=== PATIENT | female | born 1935 | race Caucasian/White ===

== ENCOUNTER 2018-12-15 10:50 | Day surgery (SDC) | payer MEDICARE ==
[~2018-12-15 10:50] MED LIST: CEFAZOLIN 1G VIAL IVP ONE; CEFAZOLIN 2 Gram 2 GM/50 ML BAG IVPB ONE; CELECOXIB 100 MG CAPSULE PO ONE; FAMOTIDINE 20MG TABLET PO ONE; MECLIZINE 25 MG TABLET PO ONE; METOCLOPRAMIDE 10 MG TABLET PO ONE; VANCOMYCIN HCL 1 MG in DEXTROSE 5 % IN WATER 250 ML IVPB ONE; WATER STERILE FOR INJECTION 20 ML VIAL MC ONE
[2018-12-15] MEDS ORDERED: CEFAZOLIN 2 Gram 2 GM/50 ML BAG IVPB ONE (10:51)
[2018-12-15] MEDS ORDERED: TRANEXAMIC ACID 1,000 MG/10 ML ML IV ONE (10:51)
[2018-12-15] MEDS ORDERED: 0.9 % SODIUM CHLORIDE 10 ML VIAL IVP ONE (10:51)
[2018-12-15] MEDS ORDERED: DEXAMETHASONE 4 MG/ML 1ML VIAL IVP ONE (10:51)
[2018-12-15] MEDS ORDERED: PROPOFOL 10 MG/ML VIAL IV ONE (10:51)
[2018-12-15] MEDS ORDERED: KETAMINE HCL 100MG/1ML VIAL INJ ONE (10:51)
[2018-12-15] MEDS ORDERED: ROPIVACAINE HCL (NAROPIN) /PF 5MG/ML 20ML VIAL IV ONE (10:51)
[2018-12-15] MEDS ORDERED: MIDAZOLAM HCL 2MG/2ML VIAL IV ONE (10:51)
[2018-12-15 11:26] LABS: ABO GROUP A; RH TYPE NEGATIVE
[2018-12-15] MEDS ORDERED: RINGERS SOLUTION,LACTATED 1,000 ML IV ONE ×3 (11:47→15:40)
[2018-12-15] MEDS ORDERED: BUPIVACAINE 0.5% W/EPI MPF 30 ML VIAL SQ ONE (14:14)
[2018-12-15 14:42] LABS: ANTIBODY SCREEN POSITIVE (NEGATIVE)
[2018-12-15] MEDS ORDERED: ONDANSETRON HCL IV 4 MG/2 ML VIAL IVP PRN (15:26)
[2018-12-15] MEDS ORDERED: ACETAMINOPHEN 325 MG TAB PO PRN (15:26)
[2018-12-15] MEDS ORDERED: DIPHENHYDRAMINE HCL 25 MG CAPSULE PO PRN (15:26)
[2018-12-15] MEDS ORDERED: AL HYDROX/MAG HYDROX 30ML UD PO PRN (15:26)
[2018-12-15] MEDS ORDERED: ZOLPIDEM TARTRATE 5 MG TABLET PO PRN (15:26)
[2018-12-15] MEDS ORDERED: KETOROLAC 30 MG/ML VIAL IVP PRN ×2 (15:26)
[2018-12-15] MEDS ORDERED: MAGNESIUM HYDROXIDE 30 ML UDC PO PRN (15:26)
[2018-12-15] MEDS ORDERED: NALOXONE 0.4 MG/1 ML VIAL IVP PRN (15:26)
[2018-12-15] MEDS ORDERED: TRAMADOL HCL 50 MG TABLET PO PRN ×2 (15:26)
[2018-12-15] MEDS ORDERED: BISACODYL 10 MG SUPP RC PRN (15:26)
[2018-12-15] MEDS ORDERED: MEPERIDINE 50 MG/1 ML VIAL IV PRN (15:28)
[2018-12-15] MEDS ORDERED: MEPERIDINE 50 MG/1 ML VIAL PO PRN (15:56)
[2018-12-15] MEDS: POTASSIUM CHLORIDE/D5-0.9%NACL 20 MEQ/1,000 ML BAG IV SCH (21:15)
[2018-12-15] MEDS: CEFAZOLIN 2 Gram 2 GM/50 ML BAG IVPB SCH (21:15)
[2018-12-15] MEDS: DOCUSATE SODIUM 100 MG CAPSULE PO SCH (21:15)
[2018-12-16] MEDS: POTASSIUM CHLORIDE/D5-0.9%NACL 20 MEQ/1,000 ML BAG IV SCH ×2 (03:02→09:06)
[2018-12-16] MEDS: CEFAZOLIN 2 Gram 2 GM/50 ML BAG IVPB SCH ×2 (04:08→11:59)
[2018-12-16 06:57] LABS: HEMATOCRIT 32.6 % (35.0-47.0); HEMOGLOBIN 10.2 gm/dl (11.6-16.0)
[2018-12-16] MEDS ORDERED: LEVOTHYROXINE SODIUM 88 MCG TABLET PO SCH (07:00)
[2018-12-16] MEDS ORDERED: RIVAROXABAN 10 MG TABLET PO SCH (10:00)
[2018-12-16] MEDS ORDERED: CHOLECALCIFEROL 1,000 UNIT TABLET PO SCH (10:00)
[2018-12-16] MEDS ORDERED: BENAZEPRIL 20 MG TABLET PO SCH (10:00)
[2018-12-16] MEDS ORDERED: AMLODIPINE BESYLATE 5MG TAB PO SCH (10:00)
[2018-12-16] MEDS ORDERED: FERROUS SULFATE 325 MG TAB PO SCH (10:00)
[2018-12-16] MEDS ORDERED: ESCITALOPRAM 10 MG TABLET PO SCH (10:00)
[2018-12-16] MEDS ORDERED: MULTIVITAMINS/MINERALS TABLET PO SCH (10:00)
--- NOTE | 2018-12-16 10:36 | Rehab Evaluation ---
Patient Information - Patient Information Diagnosis: DJD L Knee Ordered Treatment: PT Evaluate and Treat Status: Initial Evaluation Surgery: Yes (L TKA) Date of Surgery: 12/15/18 Past Medical/Surgical Hx: PAST MEDICAL/SURGICAL HISTORY Past Surgical History CERVICAL CAGE RTKA 2010 KIDNEY STONE REMOVAL HYST BILAT BREAST BX'S BENIGN C SCOPES PMH - Respiratory Hx Respiratory Disorders Yes Hx Bronchitis Yes: IN PAST Hx Pneumonia Yes: IN PAST Hx of URI Yes: GETTING OVER A COLD Hx of Productive Cough Yes: PROD WHITE SPUTUM PMH - Cardiovascular Hx Cardiovascular Disorders Yes Hx Hypertension Yes: CONTROLLED ON MEDS Exercise Tolerance Good PMH - Neuro Hx Neurological Disorders Yes Hx Neuropathy Yes: LE'S PMH - GI Hx Gastrointestinal Disorders Yes Hx Gastroesophageal Reflux Yes: AT TIMES Hx Irritable Bowel Yes: ON PROBIOTICS PMH - Hx Genitourinary Disorders Yes Hx Kidney Stones Yes: HX OF Hx Renal Disease Yes: KIDNEY IS TIPPED PMH - Endocrine Hx Endocrine Disorders Yes Hx Thyroid Disease Yes: ON MEDS PMH - Musculoskeletal Hx Musculoskeletal Disorders Yes Hx Arthritis Yes: LEFT KNEE PMH - Psych Hx Psychiatric Problems Yes Hx Anxiety Yes: ON MEDS Hx Depression Yes: LOST AND SISTER LAST YEAR DAUGHTER WITH BRAIN CA PMH - Hematology/Oncology Hx Hematology/Oncology Yes Disorders 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 Patient reports that she has a ramp entering the home with one railing on the right. Patient does report that she has 2 stairs entering her living room with one railing on the side. Patient's primary bathroom has a walk in shower with grab bars, but no hand-held shower available. Patient also reports that she has a shower bench and toilet riser available for the bathroom. Toilet in the bathroom is standard height and does not have grab bars available. Patient reports that she has a rollator available to use at home. Patient expects to discharge from hospital in a car with home PT scheduled.) - Time With Patient Total Time Spent With Patient (Min): 20 Treatment Procedures: Detail (Initial evaluation, low complexity) Subjective Information - Subjective Information Per Patient (Patient reports no pain, but does report that sensation in dorsal aspect of left foot was still numb. Patient reported that more feeling was starting to come back with ambulation.) Objective Data - Mental Status Patient Orientation: Oriented x3 - ROM Not within normal limits (Patient's left lower extremity range of motion was limited due to s/p surgery, as expected. All other range of motion was within functional limits and was assessed functionally with sit to stand transfer, amb ulation, and stair assessment.) - Strength/Tone Not within normal limits (Patient's left lower extremity was not assessed with formal manual muscle test due to patient being s/p surgery. Patient was unable to actively contract left ankle dorsiflexion or left toe flexion and extension, which is likely due to the effects of the block due to surgery. Patient's right lower extremity strength was assessed functionally with sit to stand transfer, ambulation, and stairs and were determined to be within functional limits.) - Transfers Independent (Patient completed sit to stand transfer from L EOB, with supervision x1 for safety and 2-wheeled walker for support. Patient demonstrated proper hand placement and did not require cueing for safety.) - Sensation Deficit (Patient's left lower extremity on dorsal aspect of foot was reported to be numb, but is likely due to anesthesia from surgery. Patient reported with ambulation that sensation began to return.) - Gait Detail (Patient ambulated total of 113 feet with 2-wheeled walker with initially CGAx1 assistance for safety and progressed to supervision x1 assistance. Patient demonstrated decreased left heel strike and dorsiflexion, but this is likely due to patient reporting that left extremity had decreased sensation. Patient also was assessed on stair mobility and ascended and descended 3 steps with railing on the right with CGAx1 for safety.) Therapy Assessment - Therapy Assessment Detail (Patient did well throughout therapy session, but was unable to actively contract left ankle dorsiflexion and toe flexion and extension. However, this is likely due to the effects of the block used during surgery and patient reported returning sensation during ambulation. Sit to stand transfer was assessed using 2-wheeled walker for support and supervision x1. Patient demonstrated safety compliance and did not require any verbal cueing. Patient ambulated total of 113 feet with 2-wheeled walker and CGA-SBAx1 for safety but did not require any verbal cueing for safety. Patient demonstrated decreased dorsiflexion and heel strike in left extremity but is likely due to patient reporting decreased sensation. Patient ascended and descended 3 steps with one railing support on the right with CGAx1 for safety. Overall, patient did not show any concerns with safety.) Problem List - Problem List Physical Therapy Problem List: Detail (1. Decreased patient ROM in left lower extremity due to s/p surgery 2. Decreased strength in left lower extremity due to s/p surgery. 3. Altered gait pattern due to compensations over time due to pain.) Goals - Goals Physical Therapy Goals: All inpatient goals have been met. Prognosis - Prognosis Good (Patient did well throughout treatment session and demonstrated ability with progressing to independence with transfers, ambulation, and home exercises. With continued focus on her home exercises she is expected to return to prior level of function.) Plan - Plan Physical Therapy Plan: Patient is discharged from inpatient rehab PT and is recommended to continue with home PT at this time to focus on further strengthening, transfers, and gait training.
[2018-12-16] MEDS: DOCUSATE SODIUM 100 MG CAPSULE PO SCH (11:29)
--- NOTE | 2018-12-16 11:50 | Rehab Evaluation ---
Patient Information - Patient Information Diagnosis: DJD L Knee Ordered Treatment: OT Evaluate and Treat Status: Initial Evaluation Surgery: Yes (L TKA) Date of Surgery: 12/15/18 Past Medical/Surgical Hx: PAST MEDICAL/SURGICAL HISTORY Past Surgical History CERVICAL CAGE RTKA 2010 KIDNEY STONE REMOVAL HYST BILAT BREAST BX'S BENIGN C SCOPES PMH - Respiratory Hx Respiratory Disorders Yes Hx Bronchitis Yes: IN PAST Hx Pneumonia Yes: IN PAST Hx of URI Yes: GETTING OVER A COLD Hx of Productive Cough Yes: PROD WHITE SPUTUM PMH - Cardiovascular Hx Cardiovascular Disorders Yes Hx Hypertension Yes: CONTROLLED ON MEDS Exercise Tolerance Good PMH - Neuro Hx Neurological Disorders Yes Hx Neuropathy Yes: LE'S PMH - GI Hx Gastrointestinal Disorders Yes Hx Gastroesophageal Reflux Yes: AT TIMES Hx Irritable Bowel Yes: ON PROBIOTICS PMH - Hx Genitourinary Disorders Yes Hx Kidney Stones Yes: HX OF Hx Renal Disease Yes: KIDNEY IS TIPPED PMH - Endocrine Hx Endocrine Disorders Yes Hx Thyroid Disease Yes: ON MEDS PMH - Musculoskeletal Hx Musculoskeletal Disorders Yes Hx Arthritis Yes: LEFT KNEE PMH - Psych Hx Psychiatric Problems Yes Hx Anxiety Yes: ON MEDS Hx Depression Yes: LOST AND SISTER LAST YEAR DAUGHTER WITH BRAIN CA PMH - Hematology/Oncology Hx Hematology/Oncology Yes Disorders 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 Prior to admit, she was indep. with all ADLs and driving.) Social History: Detail (Pt lives in 1 story home with her daughter and son-in-law that can assist with meals and transportation. Patient reports that she has a ramped entrance with one railing on the right. Patient does report that she has 2 stairs entering her living room with one railing on the side. Patient's primary bathroom has a walk in shower with grab bars, a shower bench, and a hand-held shower. Patient also reports that she has a toilet riser available for the bathroom. Pt has a FWW and 4WW. Patient expects to discharge from hospital in a car with home PT scheduled.) Precautions: [place], Fall, Other (FWB) - Time With Patient Total Time Spent With Patient (Min): 25 (1 Eval) Treatment Procedures: Detail (OT eval: low complexity) Subjective Information - Subjective Information Per Patient (Ok to see per RN Jennifer. Pt agreeable to OT eval.) Objective Data - Pain Pain Present: No - Mental Status Patient Orientation: Oriented x3 - Visual Perception Appears within normal limits for therapeutic activities - ROM Within normal limits ( B UEs WNL) - Strength/Tone Within normal limits - Coordination Appears within normal limits for therapeutic activities - Bed Mobility Independent (supine >< EOB) - Transfers Independent (sit >< stand from low surfaces to FWW) - Balance Balance Sitting: Good Balance Standing: Good, Fair - Sensation Intact - Gait Detail (Fxl amb. within bedroom with FWW) - ADL's/IADL's Detail (OT educ. Pt on mod. tech for LB dressing, Pt demos MOD I to don/doff underwear, pants, and socks, demos fxl ability to don shoes but declines d/t izzy wrap still on LLE. OT educ. Pt on mod techs. for safety at home - kitchen, laundry, bathroom. Pt reports spouse able to assist at DC as needed.) Therapy Assessment - Therapy Assessment Detail (Pt MOD I with all ADLs and fxl mobility, good safety awareness.) Patient Education - Patient Education Teaching Topic: Exercise/Activity, Other (ADL training) Response: Return Demonstration, Verbalize Understanding Teaching Method: Discussion, Demonstration Teaching Recipient: Patient Barriers To Learning: None Problem List - Problem List Physical Therapy Problem List: Detail (1. Decreased patient ROM in left lower extremity due to s/p surgery 2. Decreased strength in left lower extremity due to s/p surgery. 3. Altered gait pattern due to compensations over time due to pain.) Occupational Therapy Problem List: Detail (No further OT needs identified.) Goals - Goals Physical Therapy Goals: All inpatient goals have been met. Occupational Therapy Goals: No further OT needs/goals identified. Prognosis - Prognosis Good Plan - Plan Occupational Therapy Plan: No further IP OT needs/goals identified. DC IP OT. Thank you for this referral.
--- NOTE | 2018-12-17 08:50 | Operative Note ---
DATE OF SURGERY: 12/15/2018 PREOPERATIVE DIAGNOSIS: End-stage arthrosis of the left knee. POSTOPERATIVE DIAGNOSIS: End-stage arthrosis of the left knee. OPERATION: Cemented left total knee arthroplasty using Wheatley and Nephew Rupinder II components with a size 4 cobalt chrome femur, a size 4 stem tibia baseplate, a 9 mm lipped tibial insert, and a 32 mm all plastic patella. STAFF SURGEON: Demond Miranda MD ANESTHESIA: Spinal. PREPARATION: Chloraprep. INDIVIDUAL CONSIDERATIONS: None. PROCEDURE: The patient was taken to the operating room, placed supine on the operating room table. She had a successful induction of a spinal anesthetic. The left lower extremity was prepped and draped in the usual fashion. The limb was elevated and tourniquet was inflated to 250 mmHg. The patient had a midline approach to the knee. Sharp dissection carried down through skin and subcutaneous tissue. Small veins were coagulated with a Bovie. A medial arthrotomy was performed. The patella was everted and the knee was flexed. The patient had basically exposed bone throughout, actually in all 3 compartments. Fat pad was resected, ACL was sacrificed, and provisional anterior meniscectomies were performed. The capsule was released from the medial proximal tibia. The initial femoral marine pilot hole was then made freehand. The intramedullary femoral cutting jig was placed. It was cut in 7.0 degrees of valgus and adjusted for rotation and secured with pins for a 10 mm resection. The initial transverse cut was then made. The skin guide was placed in the anterior and posterior marine pilot holes. It was found that a size 4 would be appropriate. The anterior and posterior cuts followed by chamfer cuts were made. Osteophytes removed, and a size 4 trial was placed and found to fit well. The tibia was brought forward, and the remainder of the meniscal remnants removed with a Bovie. The extraarticular tibial cutting jig was placed. It was cut in neutral with a 3-degree AP slope. Care was taken to adjust for rotation and flexion using the extraarticular alignment guide and bony landmarks. It was set for a 9 mm resection keyed off the high lateral side and secured with pins. When cutting the tibia, care was taken to preserve the PCL insertion on the tibia. After removing osteophytes, and I could fit a size 4. It was adjusted for rotation and secured with pins. With a 9 mm trial and femoral trial, there was excellent motion and stability, ligamentous balance, rotation alignment were thought be normal. Femoral marine pilot holes were impacted. Tri-flange tibial stamp was impacted, and these trial components were removed. The patient had a relatively thick patella, and roughly 9 mm of bone was removed freehand with an oscillating saw. I was easily able to fit a 32 patella. The 3 marine pilot holes were drilled. The tourniquet was let down briefly to get bleeders posteriorly and then placed back up again. The knee was then thoroughly irrigated out with pulsatile Betadine and saline to remove any visual or palpable debris. Bony surfaces were then dried. A size 4 stem tibia baseplate was cemented into place followed by impaction of the 9 mm lipped tibial insert followed by cementing in the size 4 cobalt chrome femur followed by cementing in the 32 mm all plastic patella. The implant surfaces were compressed, excess cement was removed. After the cement had set, there was excellent motion and stability, ligamentous balance, rotation alignment, and patellofemoral tracking were normal. No lateral release was required. After irrigation, hemostasis was obtained with a Bovie after taking the tourniquet down. The capsule was then closed with running #2 quill, subcu was closed with running 0 quill in layers, skin was closed with tiburcio. Prior to closure, I did infiltrate the skin, subcu, and periosteum with 30 mL of 0.5% Marcaine with epinephrine. After closure, I injected the knee with 1 g of tranexamic acid was mixed with 30 mL of saline, and a sterile bulky compressive ROMÁN-type dressing was applied. The patient tolerated the procedure well. Needle and sponge counts were correct. Estimated blood loss was minimal, and she was taken back to recovery in good condition. There were no complications. [facility] CLINICFannie
== END 2018-12-16 15:45 | disposition home health service (06) ==
LOC: SUR 10:50 → MEDSURG 16:14 → SUR 12-16 15:45
PROVIDERS: ATTEND Orthopaedic Surgery
DX: M17.12 Unilateral primary osteoarthritis, left knee (principal); I10 Essential (primary) hypertension; E03.9 Hypothyroidism, unspecified
CPT/HCPCS: 27447; 01402; 64447; 85018; 85014; 80048; 86900; 86901; 86850; J3370; J0690 ×2; J3490 ×2; J2795; 76942; C1776; J3480; J7060; J7120